=== PATIENT | female | born 1995 | race Caucasian/White ===

== ENCOUNTER 2022-06-27 12:49 | Emergency (ER) | payer OTHER, SELFPAY ==
[2022-06-27 12:53] VITALS: BP 73/49; PULSE 84; RESP 16; TEMP 36.4; O2SAT 99; BMI 22.3
[2022-06-27 12:59] VITALS: BP 73/49; PULSE 84; RESP 16; TEMP 36.4; O2SAT 99
--- NOTE | 2022-06-27 13:19 | NURSING ---
NO OLD EKGS
--- NOTE | 2022-06-27 13:20 | EX.ED.VIS.PS ---
HPI <KATRIN Saavedra - Last Filed: 06/27/22 18:58> HPI - Psych History of Present Illness Chief Complaint: Mental Health Narrative Narrative: 26-year-old female tried to overdose on her prescription medications on 06/25. She states she is has a history of anxiety/depression and OCD/ADHD and has been more depressed. She took her does venlafaxine 50 mg (estimates 40 tablets), guanfacine 1 mg (estimates 30 tablets), and aripiprazole 5 mg (about 15 tablets). She took these at 10 AM on June 25. She has been very drowsy and dizzy and sleeping in her dorm room most of the weekend. She is a student at the [employer]. She told her roommate about this who told the staff and called 911. Patient states she has overdosed at least twice in the past when she was a teenager and was admitted for inpatient psychiatric treatment. She is from [place]. She denies alcohol or any other drug use. No chest pain or shortness of breath. She has had nausea but no vomiting. [facility] <KATRIN Saavedra - Last Filed: 06/27/22 18:58> [facility] Medical History (Updated 06/27/22 @ 18:58 by KATRIN Saavedra) Bipolar 1 disorder, depressed Depression Allergy/AdvReac Type Severity Reaction Status Date / Time No Known Allergies Allergy Verified 06/27/22 12:59 Family History no significant family his Social History Smoking Status: Never smoker ROS <KATRIN Saavedra - Last Filed: 06/27/22 18:58> ROS ED ROS Narrative Constitutional: Negative for fever, chills. CVS: Negative for palpitations, chest pain, syncope. Respiratory: Negative for shortness of breath. GI: Positive for nausea. Negative for abdominal pain, vomiting, diarrhea. Neuro: Negative for headache, motor/sensory dysfunction. EXAM <KATRIN Saavedra - Last Filed: 06/27/22 18:58> Physical Exam Narrative Exam Narrative: CONST: Patient sitting in no acute distress. EYES: Normal inspection. ENT: Normal inspection, moist mucous membranes. NECK: Normal inspection. RESP: No respiratory distress, CTAB. CVS: Regular rate and rhythm, no murmur, no gallop. SKIN: Color normal, no rash, warm, dry, intact. EXTREMITIES: Normal appearance, no pedal edema. NEURO: Oriented x4. PSYCH: Patient appears mildly depressed, minimal eye contact. Cooperative. Const Vital Signs: 06/27/22 12:53 06/27/22 12:59 06/27/22 14:11 Temperature 97.6 F L 97.6 F L Temperature Source Temporal Temporal Pulse Rate 84 84 Respiratory Rate 16 16 18 Blood Pressure 73/49 L 73/49 L 102/64 Blood Pressure Mean 57 57 76 Pulse Ox 99 99 Oxygen Delivery Method Room Air Room Air 06/27/22 16:06 Temperature Temperature Source Pulse Rate 50 L Respiratory Rate 14 Blood Pressure 117/66 Blood Pressure Mean 83 Pulse Ox 97 Oxygen Delivery Method Room Air <Dr. Srinivasan Montesinos DO - Last Filed: 06/27/22 16:44> Physical Exam Const Vital Signs: 06/27/22 12:53 06/27/22 12:59 06/27/22 14:11 Temperature 97.6 F L 97.6 F L Temperature Source Temporal Temporal Pulse Rate 84 84 Respiratory Rate 16 16 18 Blood Pressure 73/49 L 73/49 L 102/64 Blood Pressure Mean 57 57 76 Pulse Ox 99 99 Oxygen Delivery Method Room Air Room Air 06/27/22 16:06 Temperature Temperature Source Pulse Rate 50 L Respiratory Rate 14 Blood Pressure 117/66 Blood Pressure Mean 83 Pulse Ox 97 Oxygen Delivery Method Room Air MDM <KATRIN Saavedra - Last Filed: 06/27/22 18:58> MDM MDM Narrative Medical decision making narrative: Patient overdosed on desvenlafaxine, aripiprazole, and guanfacine 2 days ago in a suicide attempt. She has been feeling dizzy and drowsy all weekend. She is awake and alert. Initial BP 73/49 otherwise normal vital signs. Heart rate sinus in the 80s. Her medical exam is unremarkable. She was given IV fluids and blood work obtained. CBC, BMP overall unremarkable. Glucose is 132 with normal anion gap. Drug and alcohol screen is negative. Tylenol and salicylate levels negative. After 2 L of IV fluids BP has improved to 117/66 and she has been able to ambulate to the bathroom without symptoms. Patient is medically cleared at this point and will require crisis evaluation for SI with attempted overdose or transfer to psychiatric facility. Interventions / MDM: Differential diagnosis: Intentional ingestion, suicidal ideation, orthostatic hypotension Diagnosis considered but do not suspect: N/A My EKG interpretation: N/A Imaging independently reviewed and interpreted by myself: N/A External documents reviewed: N/A Test considered but not ordered:N/A ED course: Attending note: Patient seen and evaluated with decorator inspector. I perform my own [id number] evaluation. I agree with the plan of work-up. Brought in for evaluation intentional ingestion occurring for 48 hours ago. History of depression on Abilify 5 mg, desvenlafaxine 50 mg and has guaifenesin. Reports took 40-50 tabs of desvenlafaxine, 40-50 tabs of guaifenesin, 10-15 tabs of Abilify. She has slept throughout the day on Tuesday. She told her roommate yesterday monitored roommates been monitoring her. Roommates called and patient brought in here for evaluation. Reports increasing stress. Nothing in particular that she would state. She goes to school. She is from [place]. Similar event 6 years ago in [place] when she was hospitalized then. No hospitalization since. Evaluation hypotensive on arrival reports dizzy symptoms. Patient will have medical clearance labs, will give IV fluids. Evaluation of her Abilify and does feel Doxaphene can cause orthostatic hypotension. We will work-up for medical clearance and discussed with crisis. Patient over 48 hours from ingestion. Re-evaluation: Laboratory studies are normal. Blood pressure improved with fluids. Patient is medically cleared. Intentional ingestion with suicidal intention. Patient will be pink slipped. Will have crisis evaluation. Disposition discussed with patient/family/significant other: Case discussed with consulting clinician: Mental health crisis Lab Data Attestation: I reviewed the patient's lab results. Labs: Laboratory Results - last 24 hr 06/27/22 06/27/22 06/27/22 13:30 13:30 13:30 WBC 8.5 RBC 4.95 Hgb 15.1 H Hct 45.1 MCV 91.1 MCH 30.5 MCHC 33.5 RDW Std Deviation 39.1 RDW Coeff of Shemar 11.8 Plt Count 285 MPV 9.9 Immature Gran % (Auto) 0.400 Neut % (Auto) 64.9 Lymph % (Auto) 19.9 [place] % (Auto) 8.1 Eos % (Auto) 6.2 H Baso % (Auto) 0.5 Absolute Neuts (auto) 5.5 Absolute Lymphs (auto) 1.69 Nucleated RBC % 0 Sodium 135 L Potassium 3.7 Chloride 104 Carbon Dioxide 25.0 Anion Gap 6 BUN 21 H Creatinine 0.86 Estim Creat Clear Calc 87.10 Est GFR (MDRD) Af Amer 104 Est GFR (MDRD) Non-Af 86 BUN/Creatinine Ratio 24.5 H Glucose 132 H Calcium 9.2 Total Bilirubin 0.60 AST 23 ALT 27 Alkaline Phosphatase 51 Total Protein 7.2 Albumin 3.9 Globulin 3.3 Albumin/Globulin Ratio 1.2 Serum , Qual Salicylates Urine Opiates Screen Urine Methadone Screen Acetaminophen Ur Barbiturates Screen Ur Phencyclidine Scrn Ur Amphetamines Screen MDMA (Ecstasy) Screen U Benzodiazepines Scrn Urine Cocaine Screen U Cannabinoids Screen Ur Drug Screen Comment Ethyl Alcohol < 3.0 06/27/22 06/27/22 06/27/22 13:30 13:30 15:40 WBC RBC Hgb Hct MCV MCH MCHC RDW Std Deviation RDW Coeff of Shemar Plt Count MPV Immature Gran % (Auto) Neut % (Auto) Lymph % (Auto) [place] % (Auto) Eos % (Auto) Baso % (Auto) Absolute Neuts (auto) Absolute Lymphs (auto) Nucleated RBC % Sodium Potassium Chloride Carbon Dioxide Anion Gap BUN Creatinine Estim Creat Clear Calc Est GFR (MDRD) Af Amer Est GFR (MDRD) Non-Af BUN/Creatinine Ratio Glucose Calcium Total Bilirubin AST ALT Alkaline Phosphatase Total Protein Albumin Globulin Albumin/Globulin Ratio Serum , Qual NEGATIVE Salicylates < 1.7 L Urine Opiates Screen NEGATIVE Urine Methadone Screen NEGATIVE Acetaminophen < 2.0 L Ur Barbiturates Screen NEGATIVE Ur Phencyclidine Scrn NEGATIVE Ur Amphetamines Screen NEGATIVE MDMA (Ecstasy) Screen NEGATIVE U Benzodiazepines Scrn NEGATIVE Urine Cocaine Screen NEGATIVE U Cannabinoids Screen NEGATIVE Ur Drug Screen Comment Ethyl Alcohol EKG Initial EKG: Attestation: I personally reviewed and interpreted this EKG as follows: Interpretation: No Acute Injury Pattern and Sinus Arrythmia Comments: Sinus rhythm with sinus arrhythmia, 60 bpm, no ectopy or ischemic changes <Dr. Srinivasan Montesinos, DO - Last Filed: 06/27/22 16:44> MDM MDM Narrative Medical decision making narrative: Patient overdosed on desvenlafaxine, aripiprazole, and guanfacine 2 days ago in a suicide attempt. She has been feeling dizzy and drowsy all weekend. She is awake and alert. Initial BP 73/49 otherwise normal vital signs. Heart rate sinus in the 80s. Her medical exam is unremarkable. She was given IV fluids and blood work obtained. CBC, BMP overall unremarkable. Glucose is 132 with normal anion gap. Drug and alcohol screen is negative. Tylenol and salicylate levels negative. After 2 L of IV fluids BP has improved to 117/66 and she has been able to ambulate to the bathroom without symptoms. Patient is medically cleared at this point and will require crisis psychiatric evaluation for SI with attempted overdose. Interventions / MDM: Differential diagnosis: Intentional ingestion, suicidal ideation, orthostatic hypotension Diagnosis considered but do not suspect: N/A My EKG interpretation: N/A Imaging independently reviewed and interpreted by myself: N/A External documents reviewed: N/A Test considered but not ordered:N/A ED course: Attending note: Patient seen and evaluated with decorator inspector. I perform my own [id number] evaluation. I agree with the plan of work-up. Brought in for evaluation intentional ingestion occurring for 48 hours ago. History of depression on Abilify 5 mg, desvenlafaxine 50 mg and has guaifenesin. Reports took 40-50 tabs of desvenlafaxine, 40-50 tabs of guaifenesin, 10-15 tabs of Abilify. She has slept throughout the day on Tuesday. She told her roommate yesterday monitored roommates been monitoring her. Roommates called and patient brought in here for evaluation. Reports increasing stress. Nothing in particular that she would state. She goes to school. She is from [place]. Similar event 6 years ago in [place] when she was hospitalized then. No hospitalization since. Evaluation hypotensive on arrival reports dizzy symptoms. Patient will have medical clearance labs, will give IV fluids. Evaluation of her Abilify and does feel Doxaphene can cause orthostatic hypotension. We will work-up for medical clearance and discussed with crisis. Patient over 48 hours from ingestion. Re-evaluation: Laboratory studies are normal. Blood pressure improved with fluids. Patient is medically cleared. Intentional ingestion with suicidal intention. Patient will be pink slipped. Will have crisis evaluation. Disposition discussed with patient/family/significant other: Case discussed with consulting clinician: Mental health crisis Lab Data Labs: Laboratory Results - last 24 hr 06/27/22 06/27/22 06/27/22 13:30 13:30 13:30 WBC 8.5 RBC 4.95 Hgb 15.1 H Hct 45.1 MCV 91.1 MCH 30.5 MCHC 33.5 RDW Std Deviation 39.1 RDW Coeff of Shemar 11.8 Plt Count 285 MPV 9.9 Immature Gran % (Auto) 0.400 Neut % (Auto) 64.9 Lymph % (Auto) 19.9 [place] % (Auto) 8.1 Eos % (Auto) 6.2 H Baso % (Auto) 0.5 Absolute Neuts (auto) 5.5 Absolute Lymphs (auto) 1.69 Nucleated RBC % 0 Sodium 135 L Potassium 3.7 Chloride 104 Carbon Dioxide 25.0 Anion Gap 6 BUN 21 H Creatinine 0.86 Estim Creat Clear Calc 87.10 Est GFR (MDRD) Af Amer 104 Est GFR (MDRD) Non-Af 86 BUN/Creatinine Ratio 24.5 H Glucose 132 H Calcium 9.2 Total Bilirubin 0.60 AST 23 ALT 27 Alkaline Phosphatase 51 Total Protein 7.2 Albumin 3.9 Globulin 3.3 Albumin/Globulin Ratio 1.2 Serum , Qual Salicylates Urine Opiates Screen Urine Methadone Screen Acetaminophen Ur Barbiturates Screen Ur Phencyclidine Scrn Ur Amphetamines Screen MDMA (Ecstasy) Screen U Benzodiazepines Scrn Urine Cocaine Screen U Cannabinoids Screen Ur Drug Screen Comment Ethyl Alcohol < 3.0 06/27/22 06/27/22 06/27/22 13:30 13:30 15:40 WBC RBC Hgb Hct MCV MCH MCHC RDW Std Deviation RDW Coeff of Shemar Plt Count MPV Immature Gran % (Auto) Neut % (Auto) Lymph % (Auto) [place] % (Auto) Eos % (Auto) Baso % (Auto) Absolute Neuts (auto) Absolute Lymphs (auto) Nucleated RBC % Sodium Potassium Chloride Carbon Dioxide Anion Gap BUN Creatinine Estim Creat Clear Calc Est GFR (MDRD) Af Amer Est GFR (MDRD) Non-Af BUN/Creatinine Ratio Glucose Calcium Total Bilirubin AST ALT Alkaline Phosphatase Total Protein Albumin Globulin Albumin/Globulin Ratio Serum , Qual NEGATIVE Salicylates < 1.7 L Urine Opiates Screen NEGATIVE Urine Methadone Screen NEGATIVE Acetaminophen < 2.0 L Ur Barbiturates Screen NEGATIVE Ur Phencyclidine Scrn NEGATIVE Ur Amphetamines Screen NEGATIVE MDMA (Ecstasy) Screen NEGATIVE U Benzodiazepines Scrn NEGATIVE Urine Cocaine Screen NEGATIVE U Cannabinoids Screen NEGATIVE Ur Drug Screen Comment Ethyl Alcohol Discharge Plan Triage Chief Complaint: Mental Health ED Midlevel Provider: Keshia Lugo ED Provider: Srinivasan Montesinos Dx/Rx/DC Orders Clinical Impression: Overdose by ingestion, Suicide attempt, Acute hypotension Primary Care Provider: Eren Snyder,Out of Referrals: Eren Snyder,Out of [Primary Care Provider] -
[2022-06-27] MEDS: 0.9% Normal Saline 1,000 ML 999 ML IV ×2 (13:32→16:00)
[2022-06-27 13:43] LABS: Absolute Lymphocyte Count 1.69 X10^3/uL (0.83-4.51); Absolute Neutrophil Count 5.5 X10^3/uL (2.0-7.7); Basophil# 0.04 X10^3/uL; Basophil% 0.5 % (0-1); Eosinophil# 0.53 X10^3/uL; Eosinophils% 6.2 % (0-5); Hematocrit 45.1 % (37-47); Hemoglobin 15.1 g/dL (12.0-15.0); Lymphocyte # 1.69 X10^3/ul (0.83-4.51); Lymphocyte % 19.9 % (19-41); Mean Corp Hgb Conc 33.5 g/dL (32-36); Mean Corpuscular Hgb 30.5 pg (27.0-32.0); Mean Corpuscular Volume 91.1 fL (81-99); Mean Platelet Vol. 9.9 fl (6.2-12.0); Monocyte# 0.69 X10^3/uL; Monocyte% 8.1 % (0-10); NRBC Flagged by Analyzer 0 % (0-5); Neutrophil # 5.52 X10^3/uL (2.7-7.7); Neutrophil % 64.9 % (47-70); Platelet Count 285 K/mm3 (150-450); RBC Distribution Width CV 11.8 % (11.6-14.6); RBC Distribution Width SD 39.1 fl (35.1-43.9); Red Blood Count 4.95 M/mm3 (4.2-5.4); White Blood Count 8.5 K/mm3 (4.4-11.0)
[2022-06-27 13:59] LABS: ALB/GLOB Ratio 1.2 RATIO (0.9-2.4); AST(SGOT) 23 U/L (15-37); Alanine Aminotransfer ALT/SGPT 27 U/L (13-56); Albumin, Serum 3.9 g/dL (3.2-5.0); Alkaline Phosphatase 51 U/L (45-117); Anion Gap 6 (5-15); BUN 21 mg/dL (7-18); BUN/Creat Ratio 24.5 RATIO (10-20); Calcium,Total 9.2 mg/dL (8.5-10.1); Chloride 104 mmol/L (98-107); Creatinine, Serum 0.86 mg/dL (0.55-1.02); EST Glomerular Filtration Rate 86 mL/min (>60); Est Glom Filt Rate - Afr Amer 104 mL/min (>60); Globulin 3.3 g/dL (2.2-4.2); Glucose 132 mg/dL (74-106); Potassium 3.7 mmol/L (3.5-5.1); Protein, Total 7.2 g/dL (6.4-8.2); Sodium Level 135 mmol/L (136-145)
[2022-06-27 14:02] LABS: Internal QC Validated? YES +Cl - CLEAR BKGD; Pregnancy, Serum, hCG Quali. NEGATIVE Negative
[2022-06-27 14:05] LABS: Alcohol, Blood (Medical)-Serum < 3.0 mg/dL
[2022-06-27 14:11] VITALS: BP 102/64; RESP 18
[2022-06-27 14:13] LABS: Acetaminophen (Tylenol) Level < 2.0 ug/mL (10.0-30.0); Salicylate < 1.7 mg/dL (2.8-20.0)
[2022-06-27 16:06] VITALS: BP 117/66; PULSE 50; RESP 14; O2SAT 97
[2022-06-27 16:19] LABS: Amphetamine Urine VISTA NEGATIVE (<1000 ng/mL); Barbiturate Urine VISTA NEGATIVE (< 200 ng/mL); Benzodiazepine Urine VISTA NEGATIVE (< 200 ng/mL); Cocaine Urine VISTA NEGATIVE (< 300 ng/mL); Ecstacy Urine VISTA NEGATIVE (< 500 ng/mL); Methadone Urine VISTA NEGATIVE (< 300 ng/mL); PCP Urine VISTA NEGATIVE (< 25 ng/mL); THC Urine VISTA NEGATIVE (< 50 ng/mL); Vista UDS pH Range 6
--- NOTE | 2022-06-27 16:45 | NURSING ---
CALLED [facility] ANSWERING SERVICE.
--- NOTE | 2022-06-27 16:48 | NURSING ---
CHART FAXED TO [facility]
[2022-06-27 21:43] VITALS: BP 116/73; PULSE 64; RESP 14; TEMP 36.9; O2SAT 97
[2022-06-28] VITALS (11 sets, daily range): BP systolic 102–134; BP diastolic 64–78; PULSE 62–78; RESP 14–16; TEMP 36.6; O2SAT 98–100
--- NOTE | 2022-06-28 12:02 | ED.RN ---
[facility] CALLED AND STATED PATIENTS INSURANCE ONLY COVERS IN [place]. CARMELLA VASQUEZ [facility] SAID THEY WERE GOING TO CONTACT [facility] FOR SITUATIONS LIKE THIS TO SEE IF THEY CAN GET HER ADMITTED SOMEWHERE.
--- NOTE | 2022-06-28 15:07 | ED.RN ---
JAMES FROM [facility] CALLED AND SAID [facility] HAD NO FUNDS AND THEY WERE REFERRING TO [facility]
--- NOTE | 2022-06-28 17:12 | ED.RN ---
FAXED EKG AND MED LIST TO [facility] PER THEIR REQUEST
--- NOTE | 2022-06-28 17:45 | ED.RN ---
KENDRA GIRALDO FATHER CALLED. HE IS ON HIS WAY TO THE HOSPITAL. UPDATED ON CARE AND PLAN THUS FARE. WOULD LIKE TO TALK WT [facility]. MARBELLA FROM [facility]IS AWARE.
--- NOTE | 2022-06-28 18:27 | ED.RN ---
[facility] ACCEPTED WAITING FOR BED SOMETIME AFTER 9AM 06/29/22 FAXED [facility] THE PINK SLIP
[2022-06-29 03:25] VITALS: O2SAT 98
--- NOTE | 2022-06-29 04:25 | ED.RN ---
Motrin was not given due to patient sleeping - will hang on to rx in vase she wakes up and wants it
[2022-06-29 06:09] VITALS: PULSE 74; RESP 17; TEMP 36.8; O2SAT 99
[2022-06-29 09:05] VITALS: BP 101/61; PULSE 77; RESP 15; O2SAT 97
--- NOTE | 2022-06-29 10:38 | CM.ED ---
Addendum entered by Mercy Feliciano 06/29/22 11:33: LEONELA met with patient and patient's parents and introduced herself and role as [facility] Manager Of Marketing. Patient was agreeable to speak to LEONELA with her parents present. LEONELA reviewed recommendations from Chante with [facility] for psychiatric placement explaining the patient had a referral to [facility]. Patient's father reports they would prefer patient return to [place] where patient can receive care from a psychiatrist in network with their insurance. Patient's father reports no safety concerns regarding transporting the patient home. LEONELA asked patient what her thoughts were regarding placement. Patient stated I want to go back home with my parents. LEONELA explained she would need to consult with [facility] and ED MD as they completed the evaluation. LEONELA met with MD Monique explaining patient's parents and patient were requesting patient be discharged to receive care in [place]. MD Monique in agreement with patient going AM. LEONELA contacted Margaux with [facility] as [place] is currently unavailable to report patient and patient's family were requesting to leave to return to [place] for psychiatric care. Margaux explained Chante had recommended psych placement and would not be comfortable with a safety plan. LEONELA explained MD was in agreement with family plan. Margaux encouraging to offer out of pocket referral to [facility] but explained ED MD is responsible for discharge but it would be against recommendations from [facility]. LEONELA met with patient and patient's family and briefly inquired about their interest in out of pocket pay for a psych placement referral for [facility]. Patient shook her head no and patient's father explained their plan is to return to [place] for psychiatric support. LEONLEA explained due to patient wishing to go against medical advice of psychiatric placement, patient would be leaving AMA and assisted patient in reviewing and signing AMA documents, patient signed, LEONELA witnessed and provided document to MD for his signature. LEONELA contacted [facility] to discontinue referral for patient. [facility] updated. Plan: Patient left AMA, patient's parents taking patient to [place] for psychiatric care per patient's request. Mercy MONTE, MAKE UP OPERATOR Original Note: Social Work Note LEONELA was contacted by Chante with [facility] to review patient's assessment and recommendations for psychiatric placement. Chante reports patient attempted suicide over the weekend and has been struggling with increased depressive symptoms for a significant period of time negatively impacting her functioning including failing college courses and decrease in self care. Chante explained due to patient's out of state insurance [facility] was consulted and a referral was placed to [facility]. Chante explained patient's father is coming to the hospital but is unsure how patient's father will respond to recommendations. Chante explained she can further consult with ED MD regarding recommendations if necessary but does not feel a safety plan is appropriate at this time. If patient's father wants to private pay and the patient is in agreement with that plan, Chante recommended [facility] or [facility]. contacted [facility] to inquire about patient's referral, admissions staff report the patient is currently on the wait list with a couple other patient's ahead of her. Admissions staff explained the plan is for patient to be accepted today, likely this evening. [facility] staff to contact with an update as they are able. Plan: pending to [facility] Mercy MONTE, ARISTIDES
--- NOTE | 2022-06-29 11:44 | ED.RN ---
pt's parents here from [place]. mu not willing to make up saftey plan and pink slip still holds. dr. fuentes speaking with parents. father going to take her directly home to psych facilty thats in insurance network from [facility] form signed per father and dr. fuentes. social work professor and propellant charge zone assembler aware. pt belongings returned and pt accompanied out by parents.
== END 2022-06-29 11:47 | disposition other institution (70) ==
PROVIDERS: Physician Assistant; Emergency Provider Emergency Medicine; Visit Provider Emergency Medicine
DX: T43.592A Poisoning by other antipsychotics and neuroleptics, intentional self-harm, initial encounter (principal); T43.212A Poisoning by selective serotonin and norepinephrine reuptake inhibitors, intentional self-harm, initial encounter; I95.9 Hypotension, unspecified; R11.0 Nausea; R42 Dizziness and giddiness
CPT/HCPCS: 80053; 80307; 80329; 82077; 84703; 85025; 87811; 93005; 96360; 96361; 99285; J7030; G0480